=== PATIENT | male | born 1985 | race Caucasian/White ===

== ENCOUNTER 2017-06-14 18:22 | Emergency (ER) | payer BC, OTHER ==
--- NOTE | 2017-06-14 19:06 | EDM.PDOC ---
ED HPI GENERAL MEDICAL PROBLEM - General Chief Complaint: Abdominal Pain Stated Complaint: PAIN IN THE PELVIC AREA Time Seen by Provider: 06/14/17 18:41 Source of Information: Reports: Patient History Limitations: Reports: No Limitations - History of Present Illness INITIAL COMMENTS - FREE TEXT/NARRATIVE: 31-year-old male presents for evaluation and treatment of right lower quadrant abdominal pain. Patient reports sharp, stabbing intermittent right lower quadrant pain for the last 2 weeks. Reports the pain gets to a 10 out of 10. Last about 6-7 hours before it subsides. He has been taking Tylenol and Motrin for the pain. He states he still is a good appetite. No fevers, nausea, vomiting , dysuria, melena or hematochezia. Last bowel movement was yesterday. Reports movements does not seem to worsen the pain actually improves the pain. He prefers to be up and walking as opposed to laying down. Gastric sleeve surgery about 3 years ago. Last intake around 15:00. Duration: Week(s): (2) Location: Reports: Abdomen (RLQ) Quality: Reports: Sharp, Stabbing, Other (intermittent) Right Lower Abdomen Pain Score (Numeric/FACES): 9 - Related Data Allergies Allergy/AdvReac Type Severity Reaction Status Date / Time Penicillins Allergy Unknown ANAPHYLAXIS Verified 06/14/17 18:31 metals Allergy Rash Uncoded 06/14/17 18:31 Home Meds: Home Meds . [No Known Home Meds] 06/14/17 [History] Past Medical History - Past Surgical History Other GI Surgeries/Procedures: Gastric sleeve Social & Family History - Tobacco Use Smoking Status *Q: Never Smoker - Caffeine Use Caffeine Use: Reports: Coffee - Recreational Drug Use Recreational Drug Use: No ED ROS GENERAL - Review of Systems Review Of Systems: See Below Constitutional: Denies: Fever, Chills, Decreased Appetite GI/Abdominal: Reports: Abdominal Pain (RLQ). Denies: Constipation, Diarrhea, Hematochezia, Melena, Nausea, Vomiting : Denies: Dysuria ED EXAM, GI/ABD - Physical Exam Exam: See Below Exam Limited By: No Limitations General Appearance: Alert, WD/WN, No Apparent Distress, Obese Throat/Mouth: Normal Inspection Neck: Normal Inspection Respiratory/Chest: No Respiratory Distress, Lungs Clear, Normal Breath Sounds Cardiovascular: Normal Peripheral Pulses, Regular Rate, Rhythm, No Murmur GI/Abdominal Exam: Normal Bowel Sounds, Soft, Guarding, Tender (RLQ), Other ( pain at [place], + psosas sign, no pain with heel percussion; ? golf ball sized palpable mass in the RLQ, non tender) Neurological: Alert, Oriented, Normal Cognition Psychiatric: Normal Affect, Normal Mood Skin Exam: Warm, Dry, Normal Color Course - Vital Signs Last Recorded V/S: Last Vital Signs Temp 36.2 C 06/14/17 18:36 Pulse 79 06/14/17 18:36 Resp 13 06/14/17 18:36 BP 140/93 H 06/14/17 18:36 Pulse Ox 100 06/14/17 18:36 - Orders/Labs/Meds Orders: Active Orders 24 hr Category Date Time Status Peripheral IV Care [RC] . DIRECTED Care 06/14/17 20:01 Active Nothing Per Oral Diet [DIET] Diet 06/15/17 Breakfast Active Abdomen 2V AP Flat Upright [CR] Stat Exams 06/14/17 18:55 Taken Abdomen Pelvis w Cont [CT] Stat Exams 06/14/17 19:52 Taken Lactated Ringers [Ringers, Lactated] 1,000 ml Med 06/14/17 23:05 Active IV .BOLUS Levofloxacin/Dextrose 5%-Water [Levaquin in D5W 750 MG/ Med 06/14/17 23:22 Active 150 ML] 750 mg Premix Bag 1 bag IV ONETIME Sodium Chloride 0.9% [Saline Flush] Med 06/14/17 20:01 Active 10 ml FLUSH ASDIRECTED PRN metroNIDAZOLE/Normal Saline [Flagyl 500 MG in NS 100 ML Med 06/14/17 23:00 Active ] 500 mg Premix Bag 1 bag IV ONETIME Peripheral IV Insertion Adult [OM.PC] Routine Oth 06/14/17 20:01 Ordered Medication Orders Metronidazole 500 mg/ Premix 100 mls @ 100 mls/hr IV ONETIME ONE Stop: 06/14/17 23:59 Last Admin: 06/14/17 23:22 Dose: 100 mls/hr Lactated Ringer's (Ringers, Lactated) 1,000 mls @ 100 mls/hr IV .BOLUS ONE Stop: 06/15/17 09:04 Last Admin: 06/14/17 23:25 Dose: Levofloxacin/Dextrose 750 mg/ (Premix) 150 mls @ 100 mls/hr IV ONETIME ONE Stop: 06/15/17 00:51 Last Admin: 06/14/17 23:25 Dose: Not Given Sodium Chloride (Saline Flush) 10 ml FLUSH ASDIRECTED PRN PRN Reason: Keep Vein Open Last Admin: 06/14/17 20:21 Dose: 10 ml Labs: Laboratory Tests 06/14/17 06/14/17 06/14/17 Range/Units 18:30 19:10 19:10 WBC 11.43 H (4.23-9.07) K/mm3 RBC 4.54 L (4.63-6.08) M/mm3 Hgb 13.6 L (13.7-17.5) gm/L Hct 40.6 (40.1-51.0) % MCV 89.4 (79.0-92.2) fl MCH 30.0 (25.7-32.2) pg MCHC 33.5 (32.2-35.5) g/dl RDW Std Deviation 40.8 (35.1-43.9) fL Plt Count 266 (163-337) K/mm3 MPV 9.4 (9.4-12.3) fl Neutrophils % (Manual) 56 (40-60) % Band Neutrophils % 0 (0-10) % Lymphocytes % (Manual) 35 (20-40) % Atypical Lymphs % 0 % Monocytes % (Manual) 8 (2-10) % Eosinophils % (Manual) 1 (0.8-7.0) % Basophils % (Manual) 0 L (0.2-1.2) Platelet Estimate Adequate Plt Morphology Comment Normal RBC Morph Comment Normal Sodium 139 (136-145) mEq/L Potassium 3.6 (3.5-5.1) mEq/L Chloride 103 (98-107) mEq/L Carbon Dioxide 26 (21-32) mEq/L Anion Gap 13.6 (5-15) BUN 8 (7-18) mg/dL Creatinine 0.8 (0.7-1.3) mg/dL Est Cr Clr Drug Dosing 132.56 mL/min Estimated GFR (MDRD) > 60 (>60) mL/min BUN/Creatinine Ratio 10.0 L (14-18) Glucose 86 (74-106) mg/dL Calcium 9.0 (8.5-10.1) mg/dL Total Bilirubin 0.7 (0.2-1.0) mg/dL AST 38 H (15-37) U/L ALT 76 H (16-63) U/L Alkaline Phosphatase 110 (46-116) U/L C-Reactive Protein 12.2 H* (<1.0) mg/dL Total Protein 8.4 H (6.4-8.2) g/dl Albumin 3.7 (3.4-5.0) g/dl Globulin 4.7 gm/dL Albumin/Globulin Ratio 0.8 L (1-2) Lipase (73-393) U/L Urine Color Yellow (Yellow) Urine Appearance Clear (Clear) Urine pH 7.0 (5.0-8.0) Ur Specific [place] 1.015 (1.005-1.030) Urine Protein Negative (Negative) Urine Glucose (UA) Negative (Negative) Urine Ketones Negative (Negative) Urine Occult Blood Negative (Negative) Urine Nitrite Negative (Negative) Urine Bilirubin Negative (Negative) Urine Urobilinogen 0.2 (0.2-1.0) Ur Leukocyte Esterase Negative (Negative) Urine RBC 0-5 (0-5) /hpf Urine WBC 0-5 (0-5) /hpf Ur Epithelial Cells 0-5 (0-5) /hpf Urine Bacteria Rare (FEW) /hpf Urine Mucus Not seen (FEW) /hpf 06/14/17 Range/Units 19:10 WBC (4.23-9.07) K/mm3 RBC (4.63-6.08) M/mm3 Hgb (13.7-17.5) gm/L Hct (40.1-51.0) % MCV (79.0-92.2) fl MCH (25.7-32.2) pg MCHC (32.2-35.5) g/dl RDW Std Deviation (35.1-43.9) fL Plt Count (163-337) K/mm3 MPV (9.4-12.3) fl Neutrophils % (Manual) (40-60) % Band Neutrophils % (0-10) % Lymphocytes % (Manual) (20-40) % Atypical Lymphs % % Monocytes % (Manual) (2-10) % Eosinophils % (Manual) (0.8-7.0) % Basophils % (Manual) (0.2-1.2) Platelet Estimate Plt Morphology Comment RBC Morph Comment Sodium (136-145) mEq/L Potassium (3.5-5.1) mEq/L Chloride (98-107) mEq/L Carbon Dioxide (21-32) mEq/L Anion Gap (5-15) BUN (7-18) mg/dL Creatinine (0.7-1.3) mg/dL Est Cr Clr Drug Dosing mL/min Estimated GFR (MDRD) (>60) mL/min BUN/Creatinine Ratio (14-18) Glucose (74-106) mg/dL Calcium (8.5-10.1) mg/dL Total Bilirubin (0.2-1.0) mg/dL AST (15-37) U/L ALT (16-63) U/L Alkaline Phosphatase (46-116) U/L C-Reactive Protein (<1.0) mg/dL Total Protein (6.4-8.2) g/dl Albumin (3.4-5.0) g/dl Globulin gm/dL Albumin/Globulin Ratio (1-2) Lipase 244 (73-393) U/L Urine Color (Yellow) Urine Appearance (Clear) Urine pH (5.0-8.0) Ur Specific [place] (1.005-1.030) Urine Protein (Negative) Urine Glucose (UA) (Negative) Urine Ketones (Negative) Urine Occult Blood (Negative) Urine Nitrite (Negative) Urine Bilirubin (Negative) Urine Urobilinogen (0.2-1.0) Ur Leukocyte Esterase (Negative) Urine RBC (0-5) /hpf Urine WBC (0-5) /hpf Ur Epithelial Cells (0-5) /hpf Urine Bacteria (FEW) /hpf Urine Mucus (FEW) /hpf Meds: Medications Generic Name Dose Route Start Last Admin Trade Name Freq PRN Reason Stop Dose Admin Metronidazole 500 mg/ Premix 100 mls @ 100 mls/hr 06/14/17 23:00 06/14/17 23: 22 IV 06/14/17 23:59 100 mls/hr ONETIME ONE Administration Lactated Ringer's 1,000 mls @ 100 mls/hr 06/14/17 23:05 06/14/17 23:25 Ringers, Lactated IV 06/15/17 09:04 Not Given .BOLUS ONE Levofloxacin/Dextrose 750 mg/ 150 mls @ 100 mls/hr 06/14/17 23:22 06/14/17 23 :25 Premix IV 06/15/17 00:51 Not Given ONETIME ONE Sodium Chloride 10 ml 06/14/17 20:01 06/14/17 20:21 Saline Flush FLUSH 10 ml ASDIRECTED PRN Administration Keep Vein Open Discontinued Medications Generic Name Dose Route Start Last Admin Trade Name Freq PRN Reason Stop Dose Admin Diatrizoate Meglum/Diatrizoate Sod 90 ml 06/14/17 21:08 06/14/17 22:33 Gastrografin 37% PO 06/14/17 21:09 90 ml ONETIME ONE Administration Hydromorphone HCl 0.5 mg 06/14/17 20:02 06/14/17 20:20 Dilaudid IVPUSH 06/14/17 20:03 0.5 mg ONETIME ONE Administration Hydromorphone HCl 0.5 mg 06/14/17 22:12 06/14/17 22:40 Dilaudid IVPUSH 06/14/17 22:13 0.5 mg ONETIME ONE Administration Lactated Ringer's 1,000 mls @ 999 mls/hr 06/14/17 22:11 06/14/17 22:39 Ringers, Lactated IV 06/14/17 23:11 999 mls/hr .BOLUS ONE Administration Levofloxacin/Dextrose 750 mg/ 150 mls @ 100 mls/hr 06/14/17 23:05 06/14/17 23 :22 Premix IV 06/15/17 00:34 100 mls/hr ONETIME ONE Administration Iopamidol 125 ml 06/14/17 21:08 06/14/17 22:33 Isovue-300 (61%) IVPUSH 06/14/17 21:09 125 ml ONETIME ONE Administration Metoclopramide HCl 5 mg 06/14/17 22:12 06/14/17 22:39 Reglan IVPUSH 06/14/17 22:13 5 mg ONETIME ONE Administration - Radiology Interpretation Free Text/Narrative:: flat and upright abdominal xray shows increased stool in the left hemicolon CT of the abdomen and pelvis with IV and oral contrast impression per vrad: Inflammation right lower quadrant in the region the appendix at peak with near the appendiceal base. At its tip, 3.2; fluid collection suspicious for abscess. - Re-Assessments/Exams Free Text/Narrative Re-Assessment/Exam: 06/14/17 23:46 When the patient's labs came back with an elevated white blood cell count elevated CRP I ordered a CT of the abdomen and pelvis. When the patient returned from CT, nail tech notify me that patient was complaining of worsening pain. By the time I entered the room, the patient states that his pain is not that bad and is declining additional pain medication. He has received Dilaudid 0.5 mg and 5mg reglan IV thus far. The CT of returned. I contacted Dr. Cook, our surgeon candle extrusion machine operator. He has come to the ER and seen the patient. He says that he would benefit from a percutaneous range of the abscess is recommending transfer to [facility]. Ordered IV levaquin, as the patient has an anaphylaxis allergy to penicillin, and IV flagyl 06/15/17 00:[address] Mcintosh, surgeon candle extrusion machine operator at [facility]. She would like me to admit to the hospitalist or go through the ER. I spoke with Dr. Barclay, ER physician at [facility]. Agrees to accept the admission. Patient go by ground ambulance to [facility] in [place]. Departure - Departure Time of Disposition: 00:04 Disposition: DC/Tfer to Acute Hospital 02 Condition: Fair Clinical Impression: Appendicitis, Appendiceal abscess - Discharge Information Referrals: Bert Borjas MD [Primary Care Provider] - Forms: ED Department Discharge Additional Instructions: Patient to go to [facility] in [place]. He will go to the ER. Dr. Barclay accepting. - My Orders Last 24 Hours: My Active Orders 06/14/17 18:55 Abdomen 2V AP Flat Upright [CR] Stat 06/14/17 19:52 Abdomen Pelvis w Cont [CT] Stat 06/14/17 20:01 Peripheral IV Care [RC] . DIRECTED Sodium Chloride 0.9% [Saline Flush] 10 ml FLUSH ASDIRECTED PRN Peripheral IV Insertion Adult [OM.PC] Routine 06/14/17 23:00 metroNIDAZOLE/Normal Saline [Flagyl 500 MG in NS 100 ML] 500 mg Premix Bag 1 bag IV ONETIME 06/14/17 23:05 Lactated Ringers [Ringers, Lactated] 1,000 ml IV .BOLUS 06/14/17 23:22 Levofloxacin/Dextrose 5%-Water [Levaquin in D5W 750 MG/150 ML] 750 mg Premix Bag 1 bag IV ONETIME 06/15/17 Breakfast Nothing Per Oral Diet [DIET] - Assessment/Plan Last 24 Hours: My Active Orders 06/14/17 18:55 Abdomen 2V AP Flat Upright [CR] Stat 06/14/17 19:52 Abdomen Pelvis w Cont [CT] Stat 06/14/17 20:01 Peripheral IV Care [RC] . DIRECTED Sodium Chloride 0.9% [Saline Flush] 10 ml FLUSH ASDIRECTED PRN Peripheral IV Insertion Adult [OM.PC] Routine 06/14/17 23:00 metroNIDAZOLE/Normal Saline [Flagyl 500 MG in NS 100 ML] 500 mg Premix Bag 1 bag IV ONETIME 06/14/17 23:05 Lactated Ringers [Ringers, Lactated] 1,000 ml IV .BOLUS 06/14/17 23:22 Levofloxacin/Dextrose 5%-Water [Levaquin in D5W 750 MG/150 ML] 750 mg Premix Bag 1 bag IV ONETIME 06/15/17 Breakfast Nothing Per Oral Diet [DIET]
[2017-06-14] MEDS: HYDROmorphone 0.5 MG/0.5 ML SYRINGE IVPUSH ONE ×2 (20:20→22:40)
[2017-06-14] MEDS: Sodium Chloride 0.9% 10 ML Syringe FLUSH PRN (20:21)
[2017-06-14] MEDS: Diatrizoate Meglumine/Diatrizoate Sodium 37% 120 ML Bottle PO ONE (22:33)
[2017-06-14] MEDS: Iopamidol 612 MG/ML 150 ML Bottle IVPUSH ONE (22:33)
[2017-06-14] MEDS: Lactated Ringers 1,000 ML IV ONE ×2 (22:39→23:25)
[2017-06-14] MEDS: Metoclopramide 10 MG/2 ML SDV IVPUSH ONE (22:39)
[2017-06-14] MEDS: Levofloxacin/Dextrose 5%-Water 750 MG in Premix Bag 1 BAG IV ONE ×2 (23:22→23:25)
[2017-06-14] MEDS: metroNIDAZOLE/Normal Saline 500 MG in Premix Bag 1 BAG IV ONE (23:22)
--- NOTE | 2017-06-15 07:09 | CR ---
Abdomen: Supine view of the abdomen was obtained as well as upright study. Comparison: No prior abdominal x-ray. Bowel gas pattern appears normal. No abnormal calcifications or soft tissue abnormality is seen. Surgical anastomotic sutures seen within the left upper abdomen. Several phleboliths are incidentally noted within the pelvis. No free air is seen. Impression: 1. Incidental findings. Diagnostic code #2
--- NOTE | 2017-06-15 07:09 | CT ---
CT abdomen and pelvis Technique: Multiple axial sections were obtained from above the dome of the diaphragm inferiorly through the pubic symphysis. Intravenous and oral contrast was utilized. Delayed images were obtained through the bladder. Comparison: Prior abdominal x-ray performed earlier on the same date (6:49 PM). Findings: Dilated appendix is seen with adjacent soft tissue abnormality showing a low density center. Findings are suspicious for appendicitis with periappendiceal abscess measuring approximately 3.4 cm. There is an appendicolith being seen within the appendix measuring 9 mm. Visualized lung bases are clear. Liver shows no focal parenchymal abnormality. Spleen appears within normal limits. Adrenal glands show no nodule. Kidneys show symmetric contrast enhancement without hydronephrosis or mass. Gallbladder contains no calcified gallstones. Pancreas is within normal limits. Aorta shows no aneurysmal dilatation. No retroperitoneal adenopathy or mesenteric abnormalities are seen. No pelvic mass or adenopathy is identified. Delayed images show contrast within the distal ureters and within the bladder. Bone window settings were reviewed which appear within normal limits for the patient's age. Impression: 1. Findings compatible with appendicitis with periappendiceal abscess. Appendicolith is also noted. 2. No additional abnormality is identified on CT study of the abdomen and pelvis. Diagnostic code #5 Agree with preliminary report issued by [facility] ([facility] preliminary report dictated on 06/14/17, 11:48 PM Central Time)
--- NOTE | 2017-06-15 07:51 | CONS ---
CONSULTING PHYSICIAN: Todd Cook MD DATE OF CONSULTATION: 06/14/2017 HISTORY OF PRESENT ILLNESS: This is a 31-year-old who has had right lower quadrant pain, sharp, stabbing, intermittent for the last 2 weeks. The pain has been increasing in intensity and was quite severe in the last 6 to 7 hours and came into the emergency room. He denies any chills, fever, nausea, vomiting, diarrhea. He underwent evaluation, CT scan showing an abscess about 3 cm tip of the appendix with a fecalith. The patient is noted to have a white count of 11,000 and a CRP of 12. The patient prior to this has been in good health. MEDICAL PROBLEMS: Have been obesity with a sleeve resection done about 3 years ago at [facility]. BMI is being calculated. PAST FAMILY HISTORY: Not known. MEDICATIONS: None. REVIEW OF SYSTEMS: No chest pain, shortness of breath, cough, hoarseness, wheezing, fainting, weakness, numbness, convulsions. PHYSICAL EXAMINATION: VITAL SIGNS: Shows a pulse of 79, blood pressure 140/93, temperature 36. EYES: Sclerae white. Extraocular muscle motion normal. ORAL CAVITY: Healthy. Mucous membrane with mouth and tongue. NECK: Supple. No nodes. No thyromegaly. LUNGS: Clear. No rales, rhonchi, fremitus, or dullness. HEART: Heart tones regular rate. No S3, S4, jugular venous distention. ABDOMEN: Shows some excessive abdominal fat with tenderness in the right lower quadrant. EXTREMITIES: No angulation deformities upper and lower extremities. Does have positive psoas sign. SKIN: Warm and dry. NEUROLOGIC: Normal. Cranial nerves III through XII intact. No sensorineural deficit. IMAGING: CT scan evaluated. ASSESSMENT: Abscess of the appendix. The patient has considerable abdominal girth which made it difficult for short trocars to enter his abdomen, but it may be better to proceed with or at least have the option to do a percutaneous drainage and antibiotics with an interval appendectomy. Discussed this with the patient and recommend a transfer to [facility] to consider this option. MMODAL /[id number]
== END 2017-06-15 00:25 ==
LOC: JD.ED 18:22
DX: K37 Unspecified appendicitis (principal); Z88.0 Allergy status to penicillin
CPT/HCPCS: 36415; 74019; 74177; 80053; 81001; 83690; 85025; 86140; 96361; 96365; 96368; 96375; 96376; 99285; J1170; J1956; J2765; J7050; J7120; Q9963; Q9967

== ENCOUNTER 2017-07-22 09:49 | Emergency (ER) | payer BC ==
--- NOTE | 2017-07-22 10:13 | EDM.PDOC ---
ED HPI GENERAL MEDICAL PROBLEM - General Chief Complaint: Abdominal Pain Stated Complaint: LOWER ABOMINAL PAIN Time Seen by Provider: 07/22/17 10:03 Source of Information: Reports: Patient History Limitations: Reports: No Limitations - History of Present Illness INITIAL COMMENTS - FREE TEXT/NARRATIVE: 32-year-old male presents to the ED with flulike symptoms. States he started suddenly yesterday afternoon. States he lost his appetite last evening but did go out drinking alcohol last evening. [place] a little warm this morning but did not take his temperature. Did have some sweats about 0500 hrs. this morning but no formal chills. She is calm. By the fact that he was identified to have an acute appendicitis with an appendicolith and periappendiceal abscess on 14 June. Is seen by our surgeon and sent to [facility] in [place] where he had percutaneous drainage of the abscess. He reports the drain was left in place for 2 days. He spent 5 days in hospital on intravenous antibiotic therapy and was discharged home on another 2 weeks of oral antibiotics( Levaquin and Flagyl ?). States he did fine on antibiotics with loosening of the stools but no formal severe diarrhea. He has been off antibiotics for about one week. Should have right lower quadrant abdominal discomfort last evening and worsened this morning. Concern therefore is for recurrence of appendicitis or elizabeth appendiceal abscess. Patient states he can walk fully erect. He does not have pain riding in a vehicle. He has mild associated nausea but this could be part of a hangover. He has not anything to drink/eat since midnight last night. Currently rates his pain in his right lower quadrant is a 2 out of 10. Onset: Today Onset Date: 07/22/17 (Awoke with low-grade fever and sweats about 0500 hrs. with increasing right lower quadrant abdominal pain) Duration: Hour(s): Location: Reports: Abdomen (Right lower quadrant of the abdomen.) Quality: Reports: Ache Severity: Mild Improves with: Reports: None Worsens with: Reports: None Context: Denies: Activity, Exercise, Lifting, Sick Contact, Trauma, Other Associated Symptoms: Reports: Fever/Chills, Loss of Appetite, Malaise, Nausea/ Vomiting (Mild nausea without vomiting), Weakness. Denies: No Other Symptoms, Confusion, Chest Pain, Cough, cough w sputum, Diaphoresis, Headaches (Feel slightly warm to palpation here. He did have some sweats about 0500 hrs. 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 [No Known Home Meds] 06/14/17 [History] Past Medical History - Past Surgical History GI Surgical History: Reports: Other (See Below) (Diagnosed with an acute appendicitis with periappendiceal abscess and appendicolith on June 14. Treated by percutaneous drainage for [address] [facility] and then 5 days of intravenous antibiotics and then 2 weeks of oral antibiotics. Digital to return to care next week for possible appendectomy around August 06.) Other GI Surgeries/Procedures: Gastric sleeve--lost about 140 pounds with this procedure. Done about 3 years ago. Social & Family History - Tobacco Use Smoking Status *Q: Never Smoker - Caffeine Use Caffeine Use: Reports: Coffee - Recreational Drug Use Recreational Drug Use: No - Living Situation & Occupation Living situation: Reports: Occupation: Employed ED ROS GENERAL - Review of Systems Review Of Systems: See Below Constitutional: Reports: Fever, Chills (Low-grade fever), Malaise, Weakness ( more night sweats of both hyper o'clock this morning), Fatigue, Other (Feels "fluish") HEENT: Reports: No Symptoms Respiratory: Reports: No Symptoms Cardiovascular: Reports: No Symptoms Endocrine: Reports: No Symptoms GI/Abdominal: Reports: Abdominal Pain (Right lower quadrant considered mild at this time.), Nausea. Denies: Vomiting (Mild nausea) : Reports: No Symptoms Musculoskeletal: Reports: No Symptoms Skin: Reports: No Symptoms Neurological: Reports: No Symptoms Psychiatric: Reports: No Symptoms Hematologic/Lymphatic: Reports: No Symptoms Immunologic: Reports: No Symptoms ED EXAM, GI/ABD - Physical Exam Exam: See Below Exam Limited By: No Limitations General Appearance: Alert, WD/WN, No Apparent Distress, Other (Temperatures 37.3 Celsius. Remainder the vitals are normal) Eyes: Bilateral: Normal Appearance (No jaundice.) Throat/Mouth: Normal Lips, Normal Teeth, Normal Oropharynx, Other (Tongue is mildly dry and coated.) Head: Atraumatic, Normocephalic Neck: Normal Inspection, Supple, Non-Tender, Full Range of Motion. No: Lymphadenopathy (L), Lymphadenopathy (R) Respiratory/Chest: No Respiratory Distress, Lungs Clear, Normal Breath Sounds, No Accessory Muscle Use Cardiovascular: Normal Peripheral Pulses, Regular Rate, Rhythm, No Edema, No Gallop, No Murmur GI/Abdominal Exam: Normal Bowel Sounds, Soft, Tender. No: Guarding, Rigid, Rebound (Minimal tenderness on deep palpation right lower quadrant without rebound or guarding) Back Exam: Normal Inspection, Full Range of Motion. No: CVA Tenderness (L), CVA Tenderness (R) Extremities: Normal Inspection, Normal Range of Motion, Non-Tender, No Pedal Edema Neurological: Alert, Oriented, CN II-XII Intact, Normal Cognition, Normal Gait Psychiatric: Normal Affect, Normal Mood Skin Exam: Warm, Dry, Intact, Normal Color, No Rash Course - Vital Signs Last Recorded V/S: Last Vital Signs Temp 37.5 C 07/22/17 11:42 Pulse 79 07/22/17 11:42 Resp 16 07/22/17 11:42 BP 129/69 07/22/17 11:42 Pulse Ox 100 07/22/17 11:42 - Orders/Labs/Meds Orders: Active Orders 24 hr Category Date Time Status Dextrose 5%-0.9% NaCl [Dextrose 5%-Normal Saline] 1,000 Med 07/22/17 10:15 Active ml IV ASDIRECTED Medication Orders Dextrose/Sodium Chloride (Dextrose 5%-Normal Saline) 1,000 mls @ 999 mls/hr IV ASDIRECTED NICOLE Last Admin: 07/22/17 10:24 Dose: 999 mls/hr Labs: Laboratory Tests 07/22/17 07/22/17 07/22/17 Range/Units 10:08 10:08 10:08 WBC 6.56 (4.23-9.07) K/mm3 RBC 4.70 (4.63-6.08) M/mm3 Hgb 14.2 (13.7-17.5) gm/L Hct 41.8 (40.1-51.0) % MCV 88.9 (79.0-92.2) fl MCH 30.2 (25.7-32.2) pg MCHC 34.0 (32.2-35.5) g/dl RDW Std Deviation 44.3 H (35.1-43.9) fL Plt Count 227 (163-337) K/mm3 MPV 9.8 (9.4-12.3) fl Neutrophils % (Manual) 61 H (40-60) % Band Neutrophils % 0 (0-10) % Lymphocytes % (Manual) 34 (20-40) % Atypical Lymphs % 0 % Monocytes % (Manual) 4 (2-10) % Eosinophils % (Manual) 1 (0.8-7.0) % Basophils % (Manual) 0 L (0.2-1.2) Platelet Estimate Adequate Plt Morphology Comment Normal RBC Morph Comment Normal ESR 27 H (0-15) mm/hr Sodium 142 (136-145) mEq/L Potassium 4.0 (3.5-5.1) mEq/L Chloride 106 (98-107) mEq/L Carbon Dioxide 25 (21-32) mEq/L Anion Gap 15.0 (5-15) BUN 7 (7-18) mg/dL Creatinine 0.8 (0.7-1.3) mg/dL Est Cr Clr Drug Dosing 127.06 mL/min Estimated GFR (MDRD) > 60 (>60) mL/min BUN/Creatinine Ratio 8.8 L (14-18) Glucose 99 (74-106) mg/dL Lactic Acid (0.4-2.0) mmol/L Calcium 9.4 (8.5-10.1) mg/dL Total Bilirubin 0.8 (0.2-1.0) mg/dL AST 29 (15-37) U/L ALT 49 (16-63) U/L Alkaline Phosphatase 80 (46-116) U/L C-Reactive Protein 2.4 H* (<1.0) mg/dL Total Protein 7.7 (6.4-8.2) g/dl Albumin 3.9 (3.4-5.0) g/dl Globulin 3.8 gm/dL Albumin/Globulin Ratio 1.0 (1-2) Lipase 173 (73-393) U/L Urine Color (Yellow) Urine Appearance (Clear) Urine pH (5.0-8.0) Ur Specific [place] (1.005-1.030) Urine Protein (Negative) Urine Glucose (UA) (Negative) Urine Ketones (Negative) Urine Occult Blood (Negative) Urine Nitrite (Negative) Urine Bilirubin (Negative) Urine Urobilinogen (0.2-1.0) Ur Leukocyte Esterase (Negative) Urine RBC (0-5) /hpf Urine WBC (0-5) /hpf Ur Epithelial Cells (0-5) /hpf Urine Bacteria (FEW) /hpf Urine Mucus (FEW) /hpf Ketones (0.0-0.3) mM 07/22/17 07/22/17 07/22/17 Range/Units 10:08 10:28 11:30 WBC (4.23-9.07) K/mm3 RBC (4.63-6.08) M/mm3 Hgb (13.7-17.5) gm/L Hct (40.1-51.0) % MCV (79.0-92.2) fl MCH (25.7-32.2) pg MCHC (32.2-35.5) g/dl RDW Std Deviation (35.1-43.9) fL Plt Count (163-337) K/mm3 MPV (9.4-12.3) fl Neutrophils % (Manual) (40-60) % Band Neutrophils % (0-10) % Lymphocytes % (Manual) (20-40) % Atypical Lymphs % % Monocytes % (Manual) (2-10) % Eosinophils % (Manual) (0.8-7.0) % Basophils % (Manual) (0.2-1.2) Platelet Estimate Plt Morphology Comment RBC Morph Comment ESR (0-15) mm/hr Sodium (136-145) mEq/L Potassium (3.5-5.1) mEq/L Chloride (98-107) mEq/L Carbon Dioxide (21-32) mEq/L Anion Gap (5-15) BUN (7-18) mg/dL Creatinine (0.7-1.3) mg/dL Est Cr Clr Drug Dosing mL/min Estimated GFR (MDRD) (>60) mL/min BUN/Creatinine Ratio (14-18) Glucose (74-106) mg/dL Lactic Acid 1.1 (0.4-2.0) mmol/L Calcium (8.5-10.1) mg/dL Total Bilirubin (0.2-1.0) mg/dL AST (15-37) U/L ALT (16-63) U/L Alkaline Phosphatase (46-116) U/L C-Reactive Protein (<1.0) mg/dL Total Protein (6.4-8.2) g/dl Albumin (3.4-5.0) g/dl Globulin gm/dL Albumin/Globulin Ratio (1-2) Lipase (73-393) U/L Urine Color Yellow (Yellow) Urine Appearance Clear (Clear) Urine pH 7.0 (5.0-8.0) Ur Specific [place] 1.015 (1.005-1.030) Urine Protein Negative (Negative) Urine Glucose (UA) Negative (Negative) Urine Ketones Negative (Negative) Urine Occult Blood Negative (Negative) Urine Nitrite Negative (Negative) Urine Bilirubin Negative (Negative) Urine Urobilinogen 0.2 (0.2-1.0) Ur Leukocyte Esterase Negative (Negative) Urine RBC Not seen (0-5) /hpf Urine WBC 0-5 (0-5) /hpf Ur Epithelial Cells 0-5 (0-5) /hpf Urine Bacteria Rare (FEW) /hpf Urine Mucus Not seen (FEW) /hpf Ketones 0.2 (0.0-0.3) mM Meds: Medications Generic Name Dose Route Start Last Admin Trade Name Freq PRN Reason Stop Dose Admin Dextrose/Sodium Chloride 1,000 mls @ 999 mls/hr 07/22/17 10:15 07/22/17 10:24 Dextrose 5%-Normal Saline IV 999 mls/hr ASDIRECTED NICOLE Administration Discontinued Medications Generic Name Dose Route Start Last Admin Trade Name Freq PRN Reason Stop Dose Admin Diatrizoate Meglum/Diatrizoate Sod 90 ml 07/22/17 11:48 07/22/17 11:58 Gastrografin 37% PO 07/22/17 11:49 90 ml ONETIME ONE Administration Iopamidol 125 ml 07/22/17 11:48 07/22/17 11:58 Isovue-300 (61%) IVPUSH 07/22/17 11:49 125 ml ONETIME ONE Administration Metoclopramide HCl 10 mg 07/22/17 10:16 07/22/17 10:46 Reglan IVPUSH 07/22/17 10:17 Not Given ONETIME ONE Ondansetron HCl 4 mg 07/22/17 10:25 07/22/17 10:33 Zofran IVPUSH 07/22/17 10:26 4 mg ONETIME ONE Administration - Radiology Interpretation Free Text/Narrative:: 32-year-old male presents to the ED with flulike symptoms. Note he was out drinking alcohol last evening and does have a mild hangover. States he lost his appetite yesterday afternoon however. Developed increasing right lower quadrant abdominal discomfort over the last 12-24 hours. Has anorexia for anything this morning. As he was no vomiting. Low-grade fever appreciated on exam at 37.3. He states he had some night sweats around 0500 hrs. this morning and did throw the covers off. It's that not necessarily unusual for him. Patient was diagnosed with a periappendiceal abscess and appendicolith on June 14. He was treated with percutaneous drainage 2 days and IV antibiotics for 5 days and then oral and Vioxx for another 12 days as an outpatient. He is completed and a box about a week ago. He is aware of discomfort in his right lower quadrant of his abdomen which is suspicious for recurrence of appendicitis or periappendiceal abscess formation. He has a very low-grade fever at this time and therefore blood cultures will not be done but will be done if he spikes a temperature. Routine labs including ESR and CRP to be done. Will be to have CT of the abdomen performed with oral and IV contrast. I will give him IV fluids D5 normal saline at open for rehydration purposes Zofran 4 mg IV for nausea relief. He reports that he spends quite a significant akathisia from Reglan last visit. Nothing for pain at present. - Re-Assessments/Exams Free Text/Narrative Re-Assessment/Exam: 07/22/17 11:24 no adverse effect of the Zofran IV. He is on his second bottle of oral contrast.Labs are back. White count is normal at 6.56 with a hemoglobin of 14.2 and hematocrit of 41.8. Platelet count is 227,000. Differential 61% neutrophils with no bands. Sedimentation rate is 27. Sodium was 142 with a potassium of 4.0. Toward 106 with a bicarbonate 25. Anion gap is 15.0. BUNs 7 with a creatinine of 0.8. Glucose is 99 lactic acid is normal at 1.1. Liver function reveals AST of 29 ALT of 49 alk phosphatase of 80. C reactive protein is 2.4 mildly elevated lipase normal at 173 ketones normal at 0.2. Therefore labs are not all that suggestive of a recurrence of infection. Will await CT of the abdomen and pelvis. 07/22/17 12:19 CT of the abdomen and pelvis has been completed. The visualized portions of the liver are normal gallbladder appears normal without stones or thickening of the wall. Pancreas appears normal both kidneys and ureters are normal. Spleen appears normal pancreas appears normal. At that distal end of the cecum there is evidence of a dilated appendix with an appendicolith. It measures 16 mm. There remains a small periappendiceal abscess of 2.3 cm compared to 3.[address] done June 14. This was suggest that he still has a active infection in this area and the appendix is likely better served removed. 07/22/17 12:[address] Kapoor surgeon at [facility] in [place] and he agrees the appendix needs to come out. Therefore he has accepted care. Patient is to present to the emergency department at [facility]. He will remain nothing by mouth as he has been since midnight last night. Carolyn LOC will remain in place. He states that at present he doesn't need anything for pain. Nausea is also controlled. Departure - Departure Time of Disposition: 12:39 Disposition: DC/Tfer to Acute Hospital 02 Condition: Fair Clinical Impression: Appendicitis with abscess - Discharge Information Referrals: Bert Borjas MD [Primary Care Provider] - Forms: ED Department Discharge Additional Instructions: Evaluation the emergency room today in regards to recurrence of right lower quadrant abdominal pain associated with loss of appetite. No problems with periappendiceal abscess developing June 14 treated by percutaneous drainage 2 days and then oral antibiotics after a 5 day course of intravenous antibiotics. Lab work today is revealing a normal white count but inflammatory markers remain mildly elevated. CT of the abdomen and pelvis was repeated and it reveals an active appendicitis. It is therefore my opinion is all well is the opinion of Dr. Kapoor surgeon at [facility] in [place] that the appendix needs to be removed. You're to remain with nothing to eat or drink by mouth en route to [place]. Travel to the emergency department where you are to be seen by Dr. Kapoor with a view to appendectomy this afternoon. - My Orders Last 24 Hours: My Active Orders 07/22/17 10:15 Dextrose 5%-0.9% NaCl [Dextrose 5%-Normal Saline] 1,000 ml IV ASDIRECTED - Assessment/Plan Last 24 Hours: My Active Orders 07/22/17 10:15 Dextrose 5%-0.9% NaCl [Dextrose 5%-Normal Saline] 1,000 ml IV ASDIRECTED
[2017-07-22] MEDS ORDERED: Dextrose 5%-0.9% NaCl 1,000 ML IV SCH (10:15)
[2017-07-22] MEDS ORDERED: Metoclopramide 10 MG/2 ML SDV IVPUSH ONE (10:16)
[2017-07-22] MEDS ORDERED: Ondansetron 4 MG/2 ML SDV IVPUSH ONE (10:25)
[2017-07-22] MEDS ORDERED: Diatrizoate Meglumine/Diatrizoate Sodium 37% 120 ML Bottle PO ONE (11:48)
[2017-07-22] MEDS ORDERED: Iopamidol 612 MG/ML 150 ML Bottle IVPUSH ONE (11:48)
--- NOTE | 2017-07-22 12:21 | CT ---
CT abdomen and pelvis Technique: Multiple axial sections were obtained from above the dome of the diaphragm inferiorly to the pubic symphysis. Intravenous and oral contrast was utilized. Comparison: Prior CT exam of 06/14/17. Findings: Dilated appendix is seen containing an appendicolith. Mild surrounding inflammatory change is seen. Small low-density finding is seen off the inferior tip of the appendix compatible with small abscess. These findings are seen on previous exam with inflammatory change and abscess having diminished in prominence from previous study. Periappendiceal abscess currently measures 2.3 cm comparing to 3.4 cm on prior study cm on prior study. Visualized lung bases show nothing acute. Liver and spleen shows no focal parenchymal abnormality. Adrenal glands show no nodule. Pancreas is within normal limits. Kidneys show symmetric contrast enhancement without hydronephrosis or mass. Gallbladder contains no calcified gallstones. Aorta shows no aneurysmal dilatation. No retroperitoneal adenopathy or mesenteric abnormalities are seen. No pelvic mass or adenopathy is seen. Impression: 1. Dilated appendix with surrounding inflammatory change. Small periappendiceal abscess is noted. Appendicolith is also seen. The inflammatory change as well as periappendiceal abscess have decreased in prominence from previous study, please correlate if this represents antibiotic use. 2. No additional abnormality is appreciated on CT study of the abdomen and pelvis. Diagnostic code #5
== END 2017-07-22 12:57 ==
LOC: JD.ED 09:49
DX: K35.3 Acute appendicitis with localized peritonitis (principal); Z88.0 Allergy status to penicillin; Z88.5 Allergy status to narcotic agent; Z88.8 Allergy status to other drugs, medicaments and biological substances; Z91.048 Other nonmedicinal substance allergy status
CPT/HCPCS: 36415; 74177; 80053; 81001; 82009; 83605; 83690; 85025; 85652; 86140; 96361; 96374; 99285; J2405; J7042; Q9963; Q9967; 99284

== ENCOUNTER 2019-08-24 21:09 | Emergency (ER) | payer BC, OTHER ==
[2019-08-24] MEDS ORDERED: Fluorescein 1 MG Ophth Strip EYELF ONE (22:34)
--- NOTE | 2019-08-24 23:31 | EDM.PDOC ---
ED HPI GENERAL MEDICAL PROBLEM - General Chief Complaint: Eye Problems Stated Complaint: LEFT EYE SCRATHCHED BY DOG CANT SEE OUT OF IT Time Seen by Provider: 08/24/19 22:17 Source of Information: Reports: Patient History Limitations: Reports: No Limitations - History of Present Illness INITIAL COMMENTS - FREE TEXT/NARRATIVE: The patient was jumping on the trampoline with his son and he fell down and the dog scratched him in the left eye. He cannot see out of that eye now. He has no other injuries. Onset: Sudden Duration: Minutes: Location: Reports: Other (left eye) Quality: Reports: Sharp Severity: Severe Improves with: Reports: None, Medication Associated Symptoms: Reports: No Other Symptoms Left Eye Pain Score (Numeric/FACES): 2 - Related Data Allergies Allergy/AdvReac Type Severity Reaction Status Date / Time Penicillins Allergy Unknown ANAPHYLAXIS Verified 08/24/19 22:17 morphine Allergy Other Verified 08/24/19 22:17 metoclopramide [From Reglan] AdvReac Irritabilit Verified 08/24/19 22:17 y metals Allergy Rash Uncoded 07/22/17 09:55 Home Meds: Home Meds . [No Known Home Meds] 06/14/17 [History] Past Medical History Gastrointestinal History: Reports: Other (See Below) Other Gastrointestinal History: appendix abcess - Past Surgical History GI Surgical History: Reports: Other (See Below) (Diagnosed with an acute appendicitis with periappendiceal abscess and appendicolith on June 14. Treated by percutaneous drainage for 2 days and [facility] and then 5 days of intravenous antibiotics and then 2 weeks of oral antibiotics. Digital to return to care next week for possible appendectomy around August 06.) Other GI Surgeries/Procedures: Gastric sleeve--lost about 140 pounds with this procedure. Done about 3 years ago. Social & Family History - Tobacco Use Smoking Status *Q: Never Smoker - Caffeine Use Caffeine Use: Reports: Coffee, Soda - Recreational Drug Use Recreational Drug Use: No - Living Situation & Occupation Living situation: Reports: Occupation: Employed ED ROS GENERAL - Review of Systems Review Of Systems: See Below Constitutional: Reports: No Symptoms HEENT: Reports: Eye Pain (left) Respiratory: Reports: No Symptoms Cardiovascular: Reports: No Symptoms Endocrine: Reports: No Symptoms GI/Abdominal: Reports: No Symptoms : Reports: No Symptoms Musculoskeletal: Reports: No Symptoms ED EXAM GENERAL W FULL EYE - Physical Exam Exam: See Below Exam Limited By: No Limitations General Appearance: Alert, No Apparent Distress Visual Acuity (R) 20/: 15 Visual Acuity (L) 20/: 15 With Correction: No Eyelids: Left: Ecchymosis Conjunctiva & Sclera: Left: Conjunctival Edema, Subconjuctival Hemorrhage Cornea Exam: Left: Corneal Abrasion Extraocular Movements: Bilateral: Intact Pupillary Size: Bilateral: 4 mm Pupillary Reaction: Bilateral: Brisk Anterior Chamber: Left: Hyphema Posterior Chamber: Left: Normal Funduscopic Ears: Normal External Exam Nose: Normal Inspection Head: Other (abrasion to the left side of the face. Small laceration to the corner of the medial eye) Respiratory/Chest: No Respiratory Distress Course - Vital Signs Last Recorded V/S: Last Vital Signs Temp 98.0 F 08/24/19 22:13 Pulse 68 08/24/19 22:13 Resp 18 08/24/19 22:13 BP 115/69 08/24/19 22:13 Pulse Ox 96 08/24/19 22:13 - Orders/Labs/Meds Meds: Medications Discontinued Medications Generic Name Dose Route Start Last Admin Trade Name Freq PRN Reason Stop Dose Admin Fluorescein Sodium 1 mg 08/24/19 22:34 08/24/19 22:51 Ful-Tash EYELF 08/24/19 22:35 1 mg ONETIME ONE Administration - Re-Assessments/Exams Free Text/Narrative Re-Assessment/Exam: 08/24/19 23:28 I use proparicaine and fluress and I examined the eye with a herman lamp. He has a small corneal abrasion. He also has a hyphema. 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 Departure - Departure Time of Disposition: 23:35 Disposition: Home, Self-Care 01 Condition: Good Clinical Impression: Abrasion, face w/o infection, Hyphema, left, Subconjunctival hemorrhage of left eye Eyelid laceration, left Qualifiers: Encounter type: initial encounter Qualified Code(s): S01.112A - Laceration without foreign body of left eyelid and periocular area, initial encounter Corneal abrasion Qualifiers: Encounter type: initial encounter Laterality: left Qualified Code(s): S05.02XA - Injury of conjunctiva and corneal abrasion without foreign body, left eye, initial encounter - Discharge Information *PRESCRIPTION DRUG MONITORING PROGRAM REVIEWED*: Not Applicable *COPY OF PRESCRIPTION DRUG MONITORING REPORT IN PATIENT [place]: Not Applicable Referrals: Bert Borjas MD [Primary Care Provider] - Additional Instructions: Use the cipro drops 1 drop in the left eye every 4 hours while awake for 1 week. Take tylenol or motrin for pain. Follow up with your stage electrician helper within a couple of days. Please return if you are worse. Sepsis Event Note - Evaluation Sepsis Screening Result: No Definite Risk - Focused Exam Vital Signs: Vital Signs Temp Pulse Resp BP Pulse Ox 08/24/19 22:13 98.0 F 68 18 115/69 96 Date Exam was Performed: 08/24/19 Time Exam was Performed: 23:26
== END 2019-08-24 23:49 | disposition home or self-care (01) ==
LOC: JD.ED 21:09
DX: S01.112A Laceration without foreign body of left eyelid and periocular area, initial encounter (principal); S05.02XA Injury of conjunctiva and corneal abrasion without foreign body, left eye, initial encounter; H11.32 Conjunctival hemorrhage, left eye; Z88.0 Allergy status to penicillin; Z88.5 Allergy status to narcotic agent; Z88.8 Allergy status to other drugs, medicaments and biological substances; Z91.048 Other nonmedicinal substance allergy status; W19.XXXA Unspecified fall, initial encounter
CPT/HCPCS: 99283

== ENCOUNTER 2021-08-09 19:07 | Emergency (ER) | payer OTHER ==
[2021-08-09] MEDS ORDERED: Sodium Chloride 0.9% 10 ML Syringe FLUSH PRN (19:25)
[2021-08-09] MEDS ORDERED: Ondansetron 4 MG/2 ML SDV IVPUSH ONE (19:25)
[2021-08-09] MEDS ORDERED: HYDROmorphone 0.5 MG/0.5 ML Syringe IVPUSH ONE (19:25)
[2021-08-09] MEDS ORDERED: Clindamycin HCl 150 MG Cap PO ONE (20:39)
[2021-08-09] MEDS ORDERED: HYDROmorphone 1 MG/ML Syringe IVPUSH ONE (20:42)
== END 2021-08-09 21:46 | disposition home or self-care (01) ==
LOC: JD.ED 19:07
DX: S92.424A Nondisplaced fracture of distal phalanx of right great toe, initial encounter for closed fracture (principal); S91.104A Unspecified open wound of right lesser toe(s) without damage to nail, initial encounter; Z88.0 Allergy status to penicillin; Z88.5 Allergy status to narcotic agent; Z91.048 Other nonmedicinal substance allergy status; W23.1XXA Caught, crushed, jammed, or pinched between stationary objects, initial encounter
CPT/HCPCS: 73630; 96374; 96375; 96376; 99283; A9270; J1170; J2405; J3490

== ENCOUNTER 2021-08-15 08:46 | Emergency (ER) | payer OTHER | END 2021-08-15 11:20 | disposition home or self-care (01) | LOC: JD.ED 08:46 | DX: Z48.00 Encounter for change or removal of nonsurgical wound dressing (principal); Z88.0 Allergy status to penicillin; Z88.5 Allergy status to narcotic agent; Z91.048 Other nonmedicinal substance allergy status; Z88.8 Allergy status to other drugs, medicaments and biological substances | CPT/HCPCS: 99282; 99283 ==